=== PATIENT | male | born 1935 | race Caucasian/White ===

== ENCOUNTER 2016-09-19 14:47 | Emergency (ER) | payer MEDICARE, BC ==
[2016-09-19] MEDS ORDERED: Sodium Chloride 0.9% 1,000 ML IV ONE (15:32)
[2016-09-19] MEDS ORDERED: Metoprolol Tartrate 5 MG in Sodium Chloride 0.9% 50 ML IV ONE (15:33)
[2016-09-19] MEDS ORDERED: Metoprolol Tartrate 5 MG/5 ML SDV ONE (15:36)
[2016-09-19] MEDS ORDERED: Metoprolol Tartrate 5 MG/5 ML SDV IVPUSH ONE ×2 (15:39→16:15)
[2016-09-19] MEDS ORDERED: Diltiazem 25 MG/5 ML SDV IVPUSH ONE (16:15)
[2016-09-19] MEDS ORDERED: Diltiazem 50 MG/10 ML SDV IVPUSH ONE (16:30)
[2016-09-19] MEDS ORDERED: Diltiazem 25 MG/5 ML SDV ONE (16:34)
[2016-09-19 16:38] VITALS: BP 124/81
--- NOTE | 2016-09-20 11:41 | CR ---
INDICATION: Elevated heart rate. CHEST: AP portable upright view of the chest 09/19/2016 was compared with 11/16 and 07/31/2015, revealing elevated left hemidiaphragm, which may be at least partly anatomic. Splenic flexure is noted in that area, as well as the stomach. Overlying EKG leads are noted. Heart size appears to be near the upper limits of normal in size or perhaps slightly enlarged. This should be correlated clinically with PA view obtained for further evaluation as clinically possible. The aorta is slightly tortuous with calcification in the arch. A definite active infiltrate or effusion was not identified. IMPRESSION: No definite acute process. MTDD
--- NOTE | 2016-09-22 13:22 | ER ---
DATE SEEN: 09/19/2016 TIME SEEN: The patient was seen at 1930 hours. HISTORY OF PRESENT ILLNESS: This 81-year-old, who was previously cardioverted by myself in July of last year for PSVT, comes in with history of fast heart rate. He normally takes one metoprolol 50 mg succinate daily, but todya, with his fast heart rate today, he took an extra tablet this evening. He feels slightly lightheaded, but no chest pain, shortness of breath, or cough, fever, chills, or history of hypo or hyperthyroidism. No back pain, arm pain, jaw pain, neck pain. No abdominal pain. No nausea. No vomiting. He has mild shortness of breath. CURRENT MEDICATIONS: His current medications state he is on magnesium; however, the list of medications on the chart only says metoprolol succinate. ALLERGIES: None. REVIEW OF SYSTEMS: HEENT: Negative. CARDIORESPIRATORY: As noted above. Denies syncope, near syncope, shortness of breath. No cough. Denies fever or chills. GI: Denies GERD, constipation, blood in the stool, black tarry stool, diarrhea, hematochezia. He denies difficulty passing urine, frequency, urgency, or dysuria. Prostatism. Denies kidney stones. Denies stroke, CVA, seizures, paresis, weakness or numbness. MUSCULOSKELETAL: Negative, except for mild arthritis. SOCIAL HISTORY: He is a retired [employer] employee, worked 38 years at [employer]. He is not a smoker. PHYSICAL EXAMINATION: VITAL SIGNS: Heart rate 154, sinus tachycardia, he has T - waves in front of the QRS complex. Temperature 37.1 degrees centigrade, blood pressure 154/111, respiratory rate 18, oxygen saturation 92%. GENERAL: The patient is slightly pale in appearance. No diaphoresis. PERRLA intact. Pharynx without abnormality. NECK: No thyromegaly or masses in the neck. No bruits in neck. LUNGS: Clear to auscultation without rales, rhonchi, or wheezes. HEART: S1, S2. There is sinus tachycardia. No murmur noted. No chest wall discomfort. ABDOMEN: No hepatosplenomegaly. No abdominal discomfort. Abdomen is soft. EXTREMITIES: Lower extremities without edema. Deep tendon reflexes normoactive in the upper and lower extremities. Cranial nerves 2 through 12 intact. Oriented x3. Strength intact in the upper and lower extremities. DIAGNOSTIC DATA: EKG demonstrates sinus tachycardia at 154. T-waves noted in front of the QRS complexes, and complexes are slightly wide. The patient had received an extra metoprolol 50 mg before coming here, (metoprolol succinate). He was given two doses of Lopressor 5 mg IV, each 10 to 15 minutes apart, and still did not slow his rate. Consequently, 10 mg of Cardizem was utilized, slow push, and he had a prompt return of his heart rate to sinus rhythm in the 80s, blood pressure 135/70, heart rate at 80. The patient is pleased, his face is now more flushed, and the patient's status was followed, he did not have any further arrhythmias or bradycardia. His pressure were same. The patient dismissed to follow up with doctor in a week. He is to add to his medication routine diltiazem 60 mg daily. It is counterintuitive to use a calcium channel beckie with a beta-beckie, but this has worked quite well for him and perhaps his AV conduction system is slightly compromised, and this will slow the AV conduction. Follow up with Dr. Willingham within the next 4 to 5 days and he has also been advised that maybe he does not need this diltiazem and leave that to the discretion of Dr. Willingham. DIAGNOSES: Sinus tachycardia, etiology indeterminate, no evidence for hypothyroidism. No evidence for coronary artery disease or coronary artery ischemia. LABORATORY FINDINGS: White count is 9,700 normal, PMNs 61, lymphocytes 26, monos 7, hemoglobin 15.6 (elevated) and platelets 272,000. Coagulation D-dimer is less than 100 and automated chemistry is good with sodium 142, potassium 4.3, chloride 107, CO2 27, BUN 22, creatinine 1.6. GFR 53, slightly low, but not very low for his age, it is quite good. Troponin less than 0.01 and BNP is 227. ASSESSMENT: 1. Sinus tachycardia, etiology indeterminate. 2. Rule out coronary artery disease. 3. No evidence for aneurysm. 4. No evidence for myocardial infarction, myocardial ischemia, or myocardial injury. No evidence for PE. D-dimer is not elevated. /[id number] JAVIER/COLLEEN MTDD
== END 2016-09-19 17:10 | disposition home or self-care (01) ==
LOC: FB.ED 14:47
DX: R00.0 Tachycardia, unspecified (principal); I47.1 Supraventricular tachycardia; Z96.652 Presence of left artificial knee joint; Z79.899 Other long term (current) drug therapy
CPT/HCPCS: 36415; 71010; 80053; 83605; 83880; 84484; 85025; 85379; 87040; 93005; 96361; 96374; 96375; 96376; 99285; J7040; 99284; A9270-GY; J0153; J3490; J7050

== ENCOUNTER 2016-09-19 23:51 | Emergency (ER) | payer MEDICARE, BC ==
[2016-09-20] MEDS ORDERED: Metoprolol Tartrate 50 MG Tab PO ONE (00:10)
--- NOTE | 2016-09-20 00:16 | EDM.PDOC ---
ED HPI GENERAL MEDICAL PROBLEM - General Chief Complaint: Cardiovascular Problem Stated Complaint: RACING HEART RATE Time Seen by Provider: 09/20/16 00:05 Source of Information: Reports: Patient, Old Records History Limitations: Reports: No Limitations - History of Present Illness INITIAL COMMENTS - FREE TEXT/NARRATIVE: 81 yo male was seen earlier today for tachycardia by Dr. Fisher. During that visit he was given IV Cardizem with either a slowing of or a conversion of the rapid rhythm. He was later sent home with an Rx for diltiazem, but was not given an oral dose in the ER. He went home about supper time. Mr. Cantrell is normally on metoprolol succinate 50 mg qd. He went to bed tonight about 10 pm and awoke about 30 minutes later with the tachycardia returned. He has no other sx's other than he is aware of his heart beating fast. A review of old records shows that he was seen here for a similar problem 08/13/16. Extensive blood work from earlier today was all normal. He reports that he had taken an extra 50 mg of metoprolol orally before coming into the ER the first time today without benefit. In the past when he's had this tachycardia taking the extra dose has resulted in a slowing of his rapid heart rate. 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 (see below) (no ) - Related Data Allergies Allergy/AdvReac Type Severity Reaction Status Date / Time No Known Allergies Allergy Verified 09/20/16 00:13 Home Meds: Home Meds Diltiazem HCl [Diltiazem ER] 90 mg PO BID #20 cap.er.12h 09/19/16 [Rx] Metoprolol Succinate 50 mg PO DAILY 09/19/16 [History] Past Medical History HEENT History: Reports: Impaired Vision Cardiovascular History: Reports: Other (See Below) Other Cardiovascular History: hx of ventricular tachycardia with previous use of adenosine, as well as electrical cardioversion - Past Surgical History Cardiovascular Surgical History: Reports: Cardiac Ablation Other Cardiovascular Surgeries/Procedures: for tachy-arrhythmia Musculoskeletal Surgical History: Reports: Knee Replacement Other Musculoskeletal Surgeries/Procedures:: left knee Social & Family History - Family History Family Medical History: Noncontributory - Tobacco Use Smoking Status *Q: Never Smoker Second Hand Smoke Exposure: No - Caffeine Use Caffeine Use: Reports: Tea - Recreational Drug Use Recreational Drug Use: No ED ROS GENERAL - Review of Systems Review Of Systems: See Below Constitutional: Reports: No Symptoms HEENT: Reports: No Symptoms Respiratory: Reports: No Symptoms Cardiovascular: Reports: Palpitations (tachycardia) GI/Abdominal: Reports: No Symptoms : Reports: No Symptoms Musculoskeletal: Reports: No Symptoms Skin: Reports: No Symptoms Neurological: Reports: No Symptoms ED EXAM, GENERAL - Physical Exam Exam: See Below Exam Limited By: No Limitations General Appearance: Alert, WD/WN, No Apparent Distress Eye Exam: Bilateral Eye: Normal Inspection Nose: Normal Inspection, Normal Mucosa Throat/Mouth: Normal Inspection, Normal Lips, Normal Oropharynx, Normal Voice, No Airway Compromise Head: Atraumatic, Normocephalic Neck: Normal Inspection Respiratory/Chest: No Respiratory Distress, Lungs Clear, Normal Breath Sounds Cardiovascular: Regular Rate, Rhythm, No Edema GI/Abdominal: Normal Bowel Sounds, Soft, Non-Tender, No Distention Back Exam: Normal Inspection Extremities: Normal Inspection, Normal Range of Motion, Non-Tender, No Pedal Edema Neurological: Alert, Oriented, CN II-XII Intact, Normal Cognition, No Motor/ Sensory Deficits Psychiatric: Normal Affect, Normal Mood Skin Exam: Warm, Dry, Intact, Normal Color, No Rash Lymphatic: No Adenopathy EKG INTERPRETATION EKG Date: 09/20/16 Time: 00:05 Rhythm: NSR Rate (Beats/Min): 148 [place]: Normal P-Wave: Present QRS: Normal ST-T: Normal QT: Normal Comparison: No Change Course - Vital Signs Text/Narrative:: metoprolol tartrate 50 mg po-no change in rate Saline lock, Adenosine 6 mg IV-converted for about 15 seconds, then went right back into the tachycardia Cardizem 25 mg IV-converted to NSR @ 75/min. Diltiazem 120 mg po given Last Recorded V/S: Last Vital Signs Temp 37.0 C 09/20/16 00:20 Pulse 150 H 09/20/16 00:20 Resp 18 09/20/16 00:20 BP 115/98 H 09/20/16 00:20 Pulse Ox 93 L 09/20/16 00:20 - Orders/Labs/Meds Orders: Active Orders 24 hr Category Date Time Status Cardiac Monitoring [RC] .As Directed Care 09/20/16 00:05 Active EKG Documentation Completion [RC] ASDIRECTED Care 09/20/16 00:05 Active Diltiazem Med 09/20/16 00:49 Once 25 mg IVPUSH ONETIME ONE Sodium Chloride 0.9% [Saline Flush] Med 09/20/16 00:31 Active 10 ml FLUSH ASDIRECTED PRN Saline Lock Insert [OM.PC] Routine Oth 09/20/16 00:31 Ordered EKG 12 Lead [EK] Routine Ther 09/20/16 00:04 Ordered Medication Orders Sodium Chloride (Saline Flush) 10 ml FLUSH ASDIRECTED PRN PRN Reason: Keep Vein Open Last Admin: 09/20/16 00:49 Dose: 10 ml Meds: Medications Generic Name Dose Route Start Last Admin Trade Name Freq PRN Reason Stop Dose Admin Sodium Chloride 10 ml 09/20/16 00:31 09/20/16 00:49 Saline Flush FLUSH 10 ml ASDIRECTED PRN Administration Keep Vein Open Discontinued Medications Generic Name Dose Route Start Last Admin Trade Name Freq PRN Reason Stop Dose Admin Adenosine 6 mg 09/20/16 00:32 09/20/16 00:46 Adenocard IVPUSH 09/20/16 00:33 6 mg NOW ONE Administration Metoprolol Tartrate 50 mg 09/20/16 00:10 09/20/16 00:17 Lopressor PO 09/20/16 00:11 50 mg ONETIME ONE Administration Departure - Departure Time of Disposition: 01:15 Disposition: Home, Self-Care 01 Condition: Good Clinical Impression: Paroxysmal supraventricular tachycardia - My Orders Last 24 Hours: My Active Orders 09/20/16 00:04 EKG 12 Lead [EK] Routine 09/20/16 00:05 Cardiac Monitoring [RC] .As Directed EKG Documentation Completion [RC] ASDIRECTED 09/20/16 00:31 Sodium Chloride 0.9% [Saline Flush] 10 ml FLUSH ASDIRECTED PRN Saline Lock Insert [OM.PC] Routine 09/20/16 00:49 Diltiazem 25 mg IVPUSH ONETIME ONE - Assessment/Plan Last 24 Hours: My Active Orders 09/20/16 00:04 EKG 12 Lead [EK] Routine 09/20/16 00:05 Cardiac Monitoring [RC] .As Directed EKG Documentation Completion [RC] ASDIRECTED 09/20/16 00:31 Sodium Chloride 0.9% [Saline Flush] 10 ml FLUSH ASDIRECTED PRN Saline Lock Insert [OM.PC] Routine 09/20/16 00:49 Diltiazem 25 mg IVPUSH ONETIME ONE
[2016-09-20] MEDS ORDERED: Adenosine 6 MG/2 ML SDV IVPUSH ONE (00:32)
[2016-09-20] MEDS ORDERED: Diltiazem 25 MG/5 ML SDV IVPUSH ONE (00:49)
[2016-09-20] MEDS: Sodium Chloride 0.9% 10 ML Syringe FLUSH PRN ×3 (00:49→00:59)
[2016-09-20] MEDS ORDERED: Diltiazem 120 MG Cap.CD PO ONE (01:00)
[2016-09-20] MEDS ORDERED: Sodium Chloride 0.9% 1,000 ML IV ONE (01:22)
[2016-09-20 02:53] VITALS: BP 128/78
== END 2016-09-20 02:53 | disposition home or self-care (01) ==
LOC: FB.ED 23:51
DX: I47.1 Supraventricular tachycardia (principal); Z96.652 Presence of left artificial knee joint; Z79.899 Other long term (current) drug therapy
CPT/HCPCS: 93005; 96361; 96374; 96375; 99285; A9270; J0153; J7040; J7050; J3490

== ENCOUNTER 2016-11-07 01:28 | Emergency (ER) | payer MEDICARE, BC ==
[2016-11-07] MEDS ORDERED: Diltiazem 25 MG/5 ML SDV IVPUSH ONE (01:40)
[2016-11-07] MEDS ORDERED: Diltiazem 25 MG/5 ML SDV ONE (01:40)
[2016-11-07] MEDS ORDERED: Diltiazem 120 MG Cap.CD PO ONE (01:55)
[2016-11-07] MEDS ORDERED: Diltiazem 120 MG Cap.CD ONE (01:59)
[2016-11-07 03:40] VITALS: BP 116/77
--- NOTE | 2016-11-07 08:32 | ER ---
DATE SEEN: 11/07/2016 TIME SEEN: 0230 hours. CHIEF COMPLAINT: Palpitations. HISTORY OF PRESENT ILLNESS: An 81-year-old male complaining of palpitations at about 2300 hours. He took metoprolol that he has taken before, but his symptoms did not improve. He complains of no chest pain or shortness of breath. This is 3rd episode in 3 months where he is coming with the same symptoms. He currently takes Cardizem along with metoprolol. He has a cardiology appointment next week. REVIEW OF SYSTEMS: He has no other symptoms. All 12 points were negative. ALLERGIES: Penicillin. SOCIAL HISTORY: Does not smoke or drink alcohol in excess. PHYSICAL EXAMINATION: VITAL SIGNS: On examination, his blood pressure was initially in the 150s systolic, heart rate was 150s. He has normal saturations, and he is afebrile. ENT: Negative. CARDIOVASCULAR: Regular rate but very fast, tachycardic. EXTREMITIES: No edema. ABDOMEN: Soft. LUNGS: Clear. MENTAL STATUS: Alert. SKIN: No pallor or jaundice. EKG: Revealed a wide-complex tachycardia with a heart rate of 166. LABORATORY DATA: I did labs that were negative. Please see the nurse's notes. IMPRESSION: Atrioventricular espinoza reentrant tachycardia. PLAN: I gave him Cardizem 20 mg which returned him to normal sinus rhythm. He has remained asymptomatic. I suspect this is paroxysmal SVT, and I discharged him home to continue his current medications after one oral dose of Cardizem. I recommended follow up with a classification control clerk this week. Return to the ED or come back with any worsening symptoms or any new symptoms. /[id number] MAHAMED/COLLEEN
== END 2016-11-07 03:00 | disposition home or self-care (01) ==
LOC: FB.ED 01:28
DX: I47.1 Supraventricular tachycardia (principal); Z88.0 Allergy status to penicillin
CPT/HCPCS: 36415; 80048; 83880; 84443; 84484; 85025; 93005; 96374; 99285; A9270; J3490; 99284

== ENCOUNTER 2019-09-30 09:48 | Observation (INO) | payer MEDICARE, BC ==
--- NOTE | 2019-09-30 10:01 | EDM.PDOC ---
ED HPI GENERAL MEDICAL PROBLEM - General Stated Complaint: FAST HEART RATE Time Seen by Provider: 09/30/19 09:59 Source of Information: Reports: Patient History Limitations: Reports: No Limitations - History of Present Illness INITIAL COMMENTS - FREE TEXT/NARRATIVE: 84-year-old male who reports that he has had intermittent problems with fast heart rate and he was seen by Dr. Singleton approximately 2 weeks ago and was placed on a medication (flecainide) for fast heart rate. He states that he felt that he had been doing well since then until he ran out of the medications about 2-3 days ago and it as intermittent episodes of fast heart rate with an episode yesterday morning that was associated with chest pain and shortness of breath and feelings of weakness lasted for about 2 hours. It seemed to resolve and he felt better through the day and the evening and reports that he slept well last night and then this morning while he was eating breakfast at 8 AM with his he felt that feeling of fast heart rate again and also a feeling of shortness of breath and weakness and malaise. He reports he had chest pain at the time and that pain in his chest was rated by him as an 8/10. It felt like a squeezing and heaviness type pain. It did not radiate. He was brought here to the emergency department via private vehicle by his and reports upon arrival here that he feels much improved. When placed on the monitor, however, his heart rate was in the 160s and his blood pressure was in the 100 systolic range. He specifically denied any chest pain or shortness of breath. He is currently rating his pain as a 0/10. He had no neck, jaw or arm pain. He has had no nausea or vomiting associated with this. No diaphoresis with this. No syncope associated with this but he didn't fill somewhat weak when these "episodes" occurred. No cough. No nasal congestion. No sore throat. No fevers or chills. He knows of no inciting event. There are no exacerbating or alleviating factors. There are no other associated signs or symptoms. There are no other modifying factors. Onset: Other (Intermittently for the past 2 days. Worse this morning.) Duration: Getting Worse Location: Reports: Chest Quality: Reports: Ache, Dull, Pressure Severity: Moderate (to severe earlier. 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 Recently was placed on flecainide.) - Past Surgical History HEENT Surgical History: Reports: Tonsillectomy Cardiovascular Surgical History: Reports: Cardiac Ablation Other Cardiovascular Surgeries/Procedures: for tachy-arrhythmia GI Surgical History: Reports: Appendectomy Musculoskeletal Surgical History: Reports: Knee Replacement Other Musculoskeletal Surgeries/Procedures:: left knee Social & Family History - Tobacco Use Smoking Status *Q: Unknown Ever Smoked (Nonsmoker) - Caffeine Use Caffeine Use: Reports: Tea - Alcohol Use Alcohol Use History: No - Living Situation & Occupation Living situation: Reports: Occupation: Retired ED ROS GENERAL - Review of Systems Review Of Systems: See Below Constitutional: Reports: Malaise, Weakness HEENT: Reports: No Symptoms Respiratory: Reports: Shortness of Breath Cardiovascular: Reports: Chest Pain, Lightheadedness, Palpitations (Fast heart rate) GI/Abdominal: Reports: No Symptoms : Reports: No Symptoms Musculoskeletal: Reports: No Symptoms Skin: Reports: No Symptoms Neurological: Reports: No Symptoms Hematologic/Lymphatic: Reports: No Symptoms Immunologic: Reports: No Symptoms ED EXAM, GENERAL - Physical Exam Exam: See Below Exam Limited By: No Limitations General Appearance: Alert, WD/WN, No Apparent Distress, Other (Nontoxic appearing despite having a heart rate in the 160s. He is awake, alert and appropriately responsive and interactive.) Eye Exam: Bilateral Eye: EOMI, Normal Inspection, Other (Sclera are anicteric) Ears: Normal External Exam, Hearing Grossly Normal Ear Exam: Bilateral Ear: Auricle Normal Nose: Normal Inspection, Normal Mucosa, No Blood Throat/Mouth: Normal Inspection, Normal Oropharynx, Normal Voice, No Airway Compromise Head: Atraumatic, Normocephalic Neck: Normal Inspection, Supple, Non-Tender, Full Range of Motion Respiratory/Chest: No Respiratory Distress, Lungs Clear, Normal Breath Sounds, No Accessory Muscle Use, Chest Non-Tender Cardiovascular: Normal Peripheral Pulses, No Edema, No Murmur, Tachycardia Peripheral Pulses: 2+: Radial (L), Radial (R), Dorsalis Pedis (L), Dorsalis Pedis (R) GI/Abdominal: Normal Bowel Sounds, Soft, Non-Tender, No Mass Back Exam: Normal Inspection, Full Range of Motion Extremities: Normal Inspection, Normal Range of Motion, Non-Tender, No Pedal Edema, Normal Capillary Refill Neurological: Alert, Oriented, CN II-XII Intact, Normal Cognition, No Motor/Sensory Deficits Psychiatric: Normal Affect Skin Exam: Warm, Dry, Intact, Normal Color, No Rash EKG INTERPRETATION EKG Date: 09/30/19 Time: 09:52 Rhythm: Other (Wide-complex tachycardia) Rate (Beats/Min): 164 P-Wave: Absent (Either absent or hidden secondary to fast heart rate) QRS: Wide ST-T: Other (Nonspecific) QT: Prolonged Comparison: Change From Previous EKG (Compared to EKG performed on 11/07/2016, this is exactly the same as he presented at that time.) EKG Interpretation Comments: EKG #2 (10:48 AM): This was performed after the patient had received diltiazem 15 mg IV slow push. It now shows appears to be to be a flutter with a 4-1 block. There is also deeply inverted T waves in V3, V4 and V5 which were not present on the EKG after chemical conversion on 11/07/2016. Course - Vital Signs Last Recorded V/S: Last Vital Signs Temp 36.7 C 09/30/19 12:30 Pulse 91 09/30/19 12:30 Resp 18 09/30/19 12:30 BP 115/56 L 09/30/19 12:30 Pulse Ox 95 09/30/19 12:30 - Orders/Labs/Meds Orders: Active Orders 24 hr Category Date Time Status EKG Documentation Completion [RC] ASDIRECTED Care 09/30/19 10:26 Active Chest 1V Frontal [CR] Stat Exams 09/30/19 11:04 Taken Sodium Chloride 0.9% [Normal Saline] 1,000 ml Med 09/30/19 10:30 Active IV ASDIRECTED Sodium Chloride 0.9% [Saline Flush] Med 09/30/19 10:25 Active 10 ml FLUSH ASDIRECTED PRN Peripheral IV Insertion Adult [OM.PC] Routine Oth 09/30/19 10:25 Ordered EKG 12 Lead [EK] Routine Ther 09/30/19 10:25 Ordered Medication Orders Acetaminophen (Tylenol Extra Strength) 1,000 mg PO Q6H PRN PRN Reason: Pain Sodium Chloride (Normal Saline) 1,000 mls @ 100 mls/hr IV ASDIRECTED KATYA Last Admin: 09/30/19 11:03 Dose: 100 mls/hr Documented by: RONEL Sodium Chloride (Saline Flush) 10 ml FLUSH ASDIRECTED PRN PRN Reason: Keep Vein Open Last Admin: 09/30/19 11:00 Dose: 10 ml Documented by: RONEL Labs: Laboratory Tests 09/30/19 09/30/19 09/30/19 Range/Units 10:20 10:20 10:20 WBC 9.9 (4.5-12.0) X10-3/uL RBC 5.44 (4.30-5.75) x10(6)uL Hgb 15.4 (13.5-17.8) g/dL Hct 47.3 (30.0-51.3) % MCV 86.8 (80-96) fL MCH 28.2 (27.7-33.6) pg MCHC 32.5 (32.2-35.4) g/dL RDW 14.3 (11.5-15.5) % Plt Count 277 (125-369) X10(3)uL MPV 8.4 (7.4-10.4) fL Neut % (Auto) 57.2 (46-82) % Lymph % (Auto) 30.3 (13-37) % [place] % (Auto) 7.2 (4-12) % Eos % (Auto) 2 (1.0-5.0) % Baso % (Auto) 3 H (0-2) % Neut # (Auto) 5.7 (1.6-8.3) # Lymph # (Auto) 3.0 (0.6-5.0) # [place] # (Auto) 0.7 (0.0-1.3) # Eos # (Auto) 0.2 (0.0-0.8) # Baso # (Auto) 0.3 H (0.0-0.2) # D-Dimer, Quantitative 0.41 (0.0-0.59) mg/LFEU Sodium 139 (135-145) mmol/L Potassium 4.3 (3.5-5.3) mmol/L Chloride 106 (100-110) mmol/L Carbon Dioxide 22 (21-32) mmol/L BUN 21 H (7-18) mg/dL Creatinine 1.8 H (0.70-1.30) mg/dL Est Cr Clr Drug Dosing TNP Estimated GFR (MDRD) 36 L (>60) BUN/Creatinine Ratio 11.7 (9-20) Glucose 135 H (80-116) mg/dL Calcium 8.5 L (8.6-10.2) mg/dL Magnesium 2.0 (1.8-2.5) mg/dL Total Bilirubin 0.7 (0.1-1.3) mg/dL AST 16 (5-25) IU/L ALT 13 (12-36) U/L Alkaline Phosphatase 69 (56-112) IU/L Troponin I (4.0-60.3) pg/mL Total Protein 6.7 (6.0-8.0) g/dL Albumin 3.3 (3.2-4.6) g/dL Globulin 3.4 g/dL Albumin/Globulin Ratio 1.0 TSH, Ultra Sensitive (0.36-3.74) IU/mL 09/30/19 09/30/19 Range/Units 10:20 10:20 WBC (4.5-12.0) X10-3/uL RBC (4.30-5.75) x10(6)uL Hgb (13.5-17.8) g/dL Hct (30.0-51.3) % MCV (80-96) fL MCH (27.7-33.6) pg MCHC (32.2-35.4) g/dL RDW (11.5-15.5) % Plt Count (125-369) X10(3)uL MPV (7.4-10.4) fL Neut % (Auto) (46-82) % Lymph % (Auto) (13-37) % [place] % (Auto) (4-12) % Eos % (Auto) (1.0-5.0) % Baso % (Auto) (0-2) % Neut # (Auto) (1.6-8.3) # Lymph # (Auto) (0.6-5.0) # [place] # (Auto) (0.0-1.3) # Eos # (Auto) (0.0-0.8) # Baso # (Auto) (0.0-0.2) # D-Dimer, Quantitative (0.0-0.59) mg/LFEU Sodium (135-145) mmol/L Potassium (3.5-5.3) mmol/L Chloride (100-110) mmol/L Carbon Dioxide (21-32) mmol/L BUN (7-18) mg/dL Creatinine (0.70-1.30) mg/dL Est Cr Clr Drug Dosing Estimated GFR (MDRD) (>60) BUN/Creatinine Ratio (9-20) Glucose (80-116) mg/dL Calcium (8.6-10.2) mg/dL Magnesium (1.8-2.5) mg/dL Total Bilirubin (0.1-1.3) mg/dL AST (5-25) IU/L ALT (12-36) U/L Alkaline Phosphatase (56-112) IU/L Troponin I 18.4 (4.0-60.3) pg/mL Total Protein (6.0-8.0) g/dL Albumin (3.2-4.6) g/dL Globulin g/dL Albumin/Globulin Ratio TSH, Ultra Sensitive 1.61 (0.36-3.74) IU/mL Meds: Medications Generic Name Dose Route Start Last Admin Trade Name Freq PRN Reason Stop Dose Admin Acetaminophen 1,000 mg 09/30/19 13:04 Tylenol Extra Strength PO Q6H PRN Pain Sodium Chloride 1,000 mls @ 100 mls/hr 09/30/19 10:30 09/30/19 11:03 Normal Saline IV 100 mls/hr ASDIRECTED KATYA Administration Sodium Chloride 10 ml 09/30/19 10:25 09/30/19 11:00 Saline Flush FLUSH 10 ml ASDIRECTED PRN Administration Keep Vein Open Discontinued Medications Generic Name Dose Route Start Last Admin Trade Name Freq PRN Reason Stop Dose Admin Adenosine Confirm 09/30/19 10:04 09/30/19 11:00 Adenocard Administered 09/30/19 10:05 Not Given Dose 12 mg .ROUTE .STK-MED ONE Adenosine 6 mg 09/30/19 10:03 09/30/19 10:15 Adenocard IVPUSH 09/30/19 10:04 6 mg NOW ONE Administration Adenosine 12 mg 09/30/19 10:55 09/30/19 10:17 Adenocard IVPUSH 09/30/19 10:56 12 mg NOW ONE Administration Aspirin 324 mg 09/30/19 10:23 09/30/19 10:30 Aspirin PO 09/30/19 10:24 324 mg ONETIME ONE Administration Diltiazem HCl 20 mg 09/30/19 10:23 09/30/19 10:33 Diltiazem IVPUSH 09/30/19 10:24 15 mg ONETIME ONE Administration Sodium Chloride 500 mls @ 999 mls/hr 09/30/19 10:23 09/30/19 10:34 Normal Saline IV 09/30/19 10:53 999 mls/hr .BOLUS ONE Administration - Radiology Interpretation Free Text/Narrative:: Portable chest x-ray shows elevated left hemidiaphragm that was present in 2017. No other acute abnormality. - Re-Assessments/Exams Free Text/Narrative Re-Assessment/Exam: 09/30/19 10:45: Patient had been attended immediately after arrival by myself. He was awake and alert and neurologically stable with somewhat borderline blood pressure with the systolic blood pressure 100. He was given adenosine 6 mg ini tially with no effect and then 12 mg with slowing of his heart rate transiently and this appeared to show atrial flutter and then the rate sped back up to the previous level of 160. Following this, he was given diltiazem IV slowly and received 15 mg total IV with reduction in his heart rate to the 60s and it seemed to be regular at this point. All through this, he remained awake, alert and appropriate. He was chest pain-free throughout this and "felt well". He did not really notice any difference between his heart rate of 166 and after it was converted down to a rate in the 60s. He had no lightheadedness or dizziness. Repeat EKG is pending. 09/30/19 10:50: Patient's blood tests are all reassuringly normal including a negative troponin. EKG shows a regular rhythm with a rate in the 60s and it does appear to have ear P waves with a block or flutter waves still. In addition his lateral T waves are deeply inverted which is different from an EKG that was performed on 11/07/2016 after chemical conversion of his tachycardia. He continues to deny any chest pain or shortness of breath. He reports that he feels completely well now. I feel the patient will need admission with close cardiac monitoring and serial troponins. I will discuss the patient's case with Dr. Willingham, the patient's primary physician and the hospitalist today, in regard to admission. 09/30/19 11:15: I discussed the patient's case with Dr. Willingham and he is agreeable to admitting the patient here. I also called and discussed patient is case with his at the patient's request and the patient's is in agreement with the patient being admitted here as well. I discussed this with the patient and he is in agreement with the plan for admission as well. I will place interim admission orders and Dr. Willingham is coming in to see the patient. The patient will be placed on observation status for now. Departure - Departure Time of Disposition: 11:30 Disposition: Refer to Observation Condition: Fair (Stable/improved) Clinical Impression: Wide-complex tachycardia, Acute electrocardiogram changes Chest pain Qualifiers: Chest pain type: unspecified Qualified Code(s): R07.9 - Chest pain, unspecified Critical Care Note - Critical Care Note Total Time (mins): 45 (Patient was attended immediately upon arrival to the emergency department by myself and was monitored continuously for the first 45 minutes of his emergency department stay secondary to his Plex tachycardia and borderline hypotension. Therefore critical care time was 45 minutes.) Sepsis Event Note (ED) - Focused Exam Vital Signs: Vital Signs Temp Pulse Resp BP Pulse Ox 09/30/19 11:00 62 100/52 L 09/30/19 10:45 63 91/55 L 09/30/19 10:40 67 95/52 L 09/30/19 10:35 58 L 100/56 L 09/30/19 09:48 36.8 C 165 H 21 H 104/88 95 - My Orders Last 24 Hours: My Active Orders 09/30/19 10:25 Sodium Chloride 0.9% [Saline Flush] 10 ml FLUSH ASDIRECTED PRN Peripheral IV Insertion Adult [OM.PC] Routine EKG 12 Lead [EK] Routine 09/30/19 10:26 EKG Documentation Completion [RC] ASDIRECTED 09/30/19 10:30 Sodium Chloride 0.9% [Normal Saline] 1,000 ml IV ASDIRECTED 09/30/19 11:04 Chest 1V Frontal [CR] Stat - Assessment/Plan Last 24 Hours: My Active Orders 09/30/19 10:25 Sodium Chloride 0.9% [Saline Flush] 10 ml FLUSH ASDIRECTED PRN Peripheral IV Insertion Adult [OM.PC] Routine EKG 12 Lead [EK] Routine 09/30/19 10:26 EKG Documentation Completion [RC] ASDIRECTED 09/30/19 10:30 Sodium Chloride 0.9% [Normal Saline] 1,000 ml IV ASDIRECTED 09/30/19 11:04 Chest 1V Frontal [CR] Stat
[2019-09-30] MEDS ORDERED: Adenosine 6 MG/2 ML SDV IVPUSH ONE ×2 (10:03→10:55)
[2019-09-30] MEDS ORDERED: Adenosine 6 MG/2 ML SDV ONE (10:04)
[2019-09-30] MEDS ORDERED: Diltiazem 25 MG/5 ML SDV IVPUSH ONE (10:23)
[2019-09-30] MEDS ORDERED: Sodium Chloride 0.9% 500 ML IV ONE (10:23)
[2019-09-30] MEDS ORDERED: Aspirin 81 MG Tab.Chew PO ONE (10:23)
[2019-09-30] MEDS ORDERED: Sodium Chloride 0.9% 1,000 ML IV SCH (10:30)
[2019-09-30] MEDS: Sodium Chloride 0.9% 10 ML Syringe FLUSH PRN ×2 (11:00→13:56)
[2019-09-30] MEDS ORDERED: Acetaminophen 500 MG Tab PO PRN (13:04)
--- NOTE | 2019-09-30 13:52 | PCM.HP.2 ---
H&P History of Present Illness - General Date of Service: 09/30/19 Admit Problem/Dx: Admission Diagnosis/Problem Admission Diagnosis/Problem Chest pain Source of Information: Patient, EMS, Old Records History Limitations: Reports: No Limitations - History of Present Illness Initial Comments - Free Text/Narative: This is an 84-year-old male patient that is a history of SVT and atrial fibrillation beats. He was placed on flecainide 50 mg twice a day [address] Valerio [address] Valerio conferred with associate director. He ran out of his medicine a couple days ago and then started having problems with chest pain last night. Then it reoccurred this morning. He had some shortness of breath and some sweating. He came to the ER his heart rate was 160. He is given some adenosine and then IV diltiazem and his heart rate returned to normal levels. He's normally and Toprol XL 100 mg and course of flecainide 50 twice a day. He said ablations 2. As I speak to me feels really great. He denies chest pain, shortness breath, fevers, chills, arm pain. - Related Data Allergies/Adverse Reactions: Allergies Allergy/AdvReac Type Severity Reaction Status Date / Time Penicillins Allergy Swelling Verified 11/07/16 01:48 Home Medications: Home Meds Flecainide Acetate 50 mg PO BID 09/30/19 [History] Past Medical History HEENT History: Reports: Impaired Vision Cardiovascular History: Reports: Arrhythmia (Reported to be SVT in 2017 with conversion with Cardizem. Recently was placed on flecainide.) Other Cardiovascular History: hx of ventricular tachycardia with previous use of adenosine, as well as electrical cardioversion - Past Surgical History HEENT Surgical History: Reports: Tonsillectomy Cardiovascular Surgical History: Reports: Cardiac Ablation Other Cardiovascular Surgeries/Procedures: for tachy-arrhythmia GI Surgical History: Reports: Appendectomy Musculoskeletal Surgical History: Reports: Knee Replacement Other Musculoskeletal Surgeries/Procedures:: left knee Social & Family History - Family History Family Medical History: Noncontributory - Tobacco Use Smoking Status *Q: Unknown Ever Smoked (Nonsmoker) Second Hand Smoke Exposure: No - Caffeine Use Caffeine Use: Reports: Tea - Recreational Drug Use Recreational Drug Use: No - Living Situation & Occupation Living situation: Reports: Occupation: Retired H&P Review of Systems - Review of Systems: Review Of Systems: See Below General: Reports: No Symptoms HEENT: Reports: No Symptoms Pulmonary: Reports: Shortness of Breath Cardiovascular: Reports: Chest Pain Gastrointestinal: Reports: No Symptoms Genitourinary: Reports: No Symptoms Musculoskeletal: Reports: No Symptoms Skin: Reports: No Symptoms Psychiatric: Reports: No Symptoms Neurological: Reports: No Symptoms Hematologic/Lymphatic: Reports: No Symptoms Immunologic: Reports: No Symptoms Exam - Exam Exam: See Below - Vital Signs Vital Signs: Last Vital Signs Temp 98.0 F 09/30/19 12:30 Pulse 91 09/30/19 12:30 Resp 18 09/30/19 12:30 BP 115/56 L 09/30/19 12:30 Pulse Ox 95 09/30/19 12:30 Weight: 202 lb 11.2 oz - Exam General: Alert, Oriented, Cooperative HEENT: PERRLA, Hearing Intact, Posterior Pharynx Clear, Pupils Equal, TMs Clear Neck: Supple, Trachea Midline. No: Carotid Bruit Lungs: Clear to Auscultation, Normal Respiratory Effort. No: Crackles, Rales, Rhonchi Cardiovascular: Regular Rate, Regular Rhythm, Normal S1, Normal S2. No: Tachycardia, Systolic Murmur, Diastolic Murmur GI/Abdominal Exam: Normal Bowel Sounds, Soft, Non-Tender, No Distention Back Exam: Normal Inspection Extremities: Normal Inspection, Normal Range of Motion, Non-Tender, No Pedal Edema Skin: Warm, Dry, Intact Neurological: Cranial Nerves Intact, Reflexes Equal Bilateral, Normal Speech, Normal Tone Neuro Extensive - Mental Status: Alert, Oriented x3, Normal Mood/Affect, Normal Cognition, Memory Intact Neuro Extensive - Motor, Sensory, Reflexes: Normal Gait Psychiatric: Alert, Normal Affect, Normal Mood - Patient Data Lab Results Last 24 hrs: Laboratory Results - last 24 hr 09/30/19 09/30/19 09/30/19 Range/Units 10:20 10:20 10:20 WBC 9.9 (4.5-12.0) X10-3/uL RBC 5.44 (4.30-5.75) x10(6)uL Hgb 15.4 (13.5-17.8) g/dL Hct 47.3 (30.0-51.3) % MCV 86.8 (80-96) fL MCH 28.2 (27.7-33.6) pg MCHC 32.5 (32.2-35.4) g/dL RDW 14.3 (11.5-15.5) % Plt Count 277 (125-369) X10(3)uL MPV 8.4 (7.4-10.4) fL Neut % (Auto) 57.2 (46-82) % Lymph % (Auto) 30.3 (13-37) % [place] % (Auto) 7.2 (4-12) % Eos % (Auto) 2 (1.0-5.0) % Baso % (Auto) 3 H (0-2) % Neut # (Auto) 5.7 (1.6-8.3) # Lymph # (Auto) 3.0 (0.6-5.0) # [place] # (Auto) 0.7 (0.0-1.3) # Eos # (Auto) 0.2 (0.0-0.8) # Baso # (Auto) 0.3 H (0.0-0.2) # D-Dimer, Quantitative 0.41 (0.0-0.59) mg/LFEU Sodium 139 (135-145) mmol/L Potassium 4.3 (3.5-5.3) mmol/L Chloride 106 (100-110) mmol/L Carbon Dioxide 22 (21-32) mmol/L BUN 21 H (7-18) mg/dL Creatinine 1.8 H (0.70-1.30) mg/dL Est Cr Clr Drug Dosing TNP Estimated GFR (MDRD) 36 L (>60) BUN/Creatinine Ratio 11.7 (9-20) Glucose 135 H (80-116) mg/dL Calcium 8.5 L (8.6-10.2) mg/dL Magnesium 2.0 (1.8-2.5) mg/dL Total Bilirubin 0.7 (0.1-1.3) mg/dL AST 16 (5-25) IU/L ALT 13 (12-36) U/L Alkaline Phosphatase 69 (56-112) IU/L Troponin I (4.0-60.3) pg/mL Total Protein 6.7 (6.0-8.0) g/dL Albumin 3.3 (3.2-4.6) g/dL Globulin 3.4 g/dL Albumin/Globulin Ratio 1.0 TSH, Ultra Sensitive (0.36-3.74) IU/mL 09/30/19 09/30/19 Range/Units 10:20 10:20 WBC (4.5-12.0) X10-3/uL RBC (4.30-5.75) x10(6)uL Hgb (13.5-17.8) g/dL Hct (30.0-51.3) % MCV (80-96) fL MCH (27.7-33.6) pg MCHC (32.2-35.4) g/dL RDW (11.5-15.5) % Plt Count (125-369) X10(3)uL MPV (7.4-10.4) fL Neut % (Auto) (46-82) % Lymph % (Auto) (13-37) % [place] % (Auto) (4-12) % Eos % (Auto) (1.0-5.0) % Baso % (Auto) (0-2) % Neut # (Auto) (1.6-8.3) # Lymph # (Auto) (0.6-5.0) # [place] # (Auto) (0.0-1.3) # Eos # (Auto) (0.0-0.8) # Baso # (Auto) (0.0-0.2) # D-Dimer, Quantitative (0.0-0.59) mg/LFEU Sodium (135-145) mmol/L Potassium (3.5-5.3) mmol/L Chloride (100-110) mmol/L Carbon Dioxide (21-32) mmol/L BUN (7-18) mg/dL Creatinine (0.70-1.30) mg/dL Est Cr Clr Drug Dosing Estimated GFR (MDRD) (>60) BUN/Creatinine Ratio (9-20) Glucose (80-116) mg/dL Calcium (8.6-10.2) mg/dL Magnesium (1.8-2.5) mg/dL Total Bilirubin (0.1-1.3) mg/dL AST (5-25) IU/L ALT (12-36) U/L Alkaline Phosphatase (56-112) IU/L Troponin I 18.4 (4.0-60.3) pg/mL Total Protein (6.0-8.0) g/dL Albumin (3.2-4.6) g/dL Globulin g/dL Albumin/Globulin Ratio TSH, Ultra Sensitive 1.61 (0.36-3.74) IU/mL Result Diagrams: 09/30/19 10:20 09/30/19 10:20 EKG INTERPRETATION EKG Date: 09/30/19 EKG Interpretation Comments: Sinus tachycardia on his tachycardia on the first EKG. Second EKG shows some ST depression on the anterolateral leads. Sinus rhythm versus atrial flutter. Sepsis Event Note - Evaluation Sepsis Screening Result: No Definite Risk - Focused Exam Vital Signs: Vital Signs Temp Pulse Resp BP Pulse Ox 09/30/19 12:30 98.0 F 91 18 115/56 L 95 09/30/19 12:00 78 142/80 H 09/30/19 11:30 80 112/65 09/30/19 11:00 62 100/52 L 09/30/19 10:45 63 91/55 L 09/30/19 10:40 67 95/52 L 09/30/19 10:35 58 L 100/56 L 09/30/19 09:48 98.3 F 165 H 21 H 104/88 95 - Problem List (1) Palliative care status SNOMED Code(s): 220424494 ICD Code: Z51.5 - ENCOUNTER FOR PALLIATIVE CARE Status: Acute Current Visit: Yes (2) Acute electrocardiogram changes SNOMED Code(s): 582488012 ICD Code: R94.31 - ABNORMAL ELECTROCARDIOGRAM [ECG] [EKG] Status: Acute Current Visit: Yes (3) Chest pain SNOMED Code(s): 38139581 ICD Code: R07.9 - CHEST PAIN, UNSPECIFIED Status: Acute Current Visit: Yes Qualifiers: Chest pain type: unspecified Qualified Code(s): R07.9 - Chest pain, unspecified (4) Wide-complex tachycardia SNOMED Code(s): 232869968 ICD Code: I47.2 - VENTRICULAR TACHYCARDIA Status: Acute Current Visit: Yes (5) Chronic renal insufficiency, stage III (moderate) SNOMED Code(s): 575133019 ICD Code: N18.3 - CHRONIC KIDNEY DISEASE, STAGE 3 (MODERATE) Status: Acute Current Visit: Yes Problem List Initiated/Reviewed/Updated: Yes Orders Last 24hrs: Active Orders 24 hr Category Date Time Status Admission Status [Patient Status] [ADT] Routine ADT 09/30/19 11:23 Active Cardiac Monitoring [RC] .As Directed Care 09/30/19 11:23 Active EKG Documentation Completion [RC] ASDIRECTED Care 09/30/19 10:26 Active EKG Documentation Completion [RC] ASDIRECTED Care 09/30/19 11:40 Active EKG Documentation Completion [RC] ASDIRECTED Care 09/30/19 13:44 Ordered Up ad Cheryl [RC] ASDIRECTED Care 09/30/19 13:45 Ordered Vital Signs [RC] Q4H Care 09/30/19 13:04 Active Heart Healthy Diet [DIET] Diet 09/30/19 Lunch Active Chest 1V Frontal [CR] Stat Exams 09/30/19 11:04 Taken TROPONIN I [CHEM] Routine Lab 09/30/19 16:15 Ordered Acetaminophen [Tylenol Extra Strength] Med 09/30/19 13:04 Active 1,000 mg PO Q6H PRN Flecainide Acetate [Flecainide Acetate] Med 09/30/19 21:00 Ordered 50 mg PO BID Metoprolol Succinate [Toprol XL] Med 09/30/19 13:45 Ordered 100 mg PO DAILY Sodium Chloride 0.9% [Normal Saline] 1,000 ml Med 09/30/19 10:30 Active IV ASDIRECTED Sodium Chloride 0.9% [Saline Flush] Med 09/30/19 10:25 Active 10 ml FLUSH ASDIRECTED PRN Peripheral IV Insertion Adult [OM.PC] Routine Oth 09/30/19 10:25 Ordered Code Status [Resuscitation Status] Routine Resus Stat 09/30/19 12:18 Ordered EKG 12 Lead [EK] Routine Ther 09/30/19 10:25 Ordered EKG 12 Lead [EK] Routine Ther 09/30/19 10:45 Ordered EKG 12 Lead [EK] Routine Ther 09/30/19 16:00 Ordered Medication Orders Acetaminophen (Tylenol Extra Strength) 1,000 mg PO Q6H PRN PRN Reason: Pain Sodium Chloride (Normal Saline) 1,000 mls @ 100 mls/hr IV ASDIRECTED KATYA Last Admin: 09/30/19 11:03 Dose: 100 mls/hr Documented by: RONEL Metoprolol Succinate (Toprol Xl) 100 mg PO DAILY [facility] Non-Formulary Medication (Flecainide Acetate [Flecainide Acetate]) 50 mg PO BID [facility] Sodium Chloride (Saline Flush) 10 ml FLUSH ASDIRECTED PRN PRN Reason: Keep Vein Open Last Admin: 09/30/19 11:00 Dose: 10 ml Documented by: RONEL Assessment/Plan Comment:: 1. Admit for observation on telemetry to rule out RI and observe rhythm. 2. Restart the flecainide 50 mrd twice a day with his Toprol 100 mg XL once a day 3. Cardiac diet 4. Up ad cheryl. 5. SCD/Lovenox for clot prophylaxis 6. Repeat troponins and EKGs a 6 hour 7. No labs of the troponin in a.m. - Mortality Measure Prognosis:: Good
[2019-09-30] MEDS: Metoprolol Succinate 100 MG Tab.ER PO SCH ×2 (13:57→14:06)
[2019-09-30] MEDS ORDERED: Enoxaparin 30 MG/0.3 ML Syringe SUBCUT SCH (14:00)
[2019-09-30] MEDS: Flecainide 100 MG Tab PO SCH ×2 (14:42→21:09)
[2019-10-01] MEDS: Metoprolol Succinate 100 MG Tab.ER PO SCH (08:05)
[2019-10-01] MEDS: Flecainide 100 MG Tab PO SCH (08:08)
[2019-10-01] MEDS ORDERED: Diltiazem 25 MG/5 ML SDV IVPUSH ONE (08:20)
[2019-10-01] MEDS ORDERED: Sodium Chloride 0.9% 1,000 ML IV SCH ×2 (08:30→09:15)
--- NOTE | 2019-10-01 09:12 | PCM.PN ---
- General Info Date of Service: 10/01/19 Admission Dx/Problem (Free Text): Patient without complaints. Through the night when he got up to the bathroom he has some tachycardia Y complex and then he will go back to bed and it would go away. This morning he got to the bathroom and he started having tachycardia but didn't go away. Patient states he has some palpitations but has no chest pain, fevers, chills, arm pain, jaw pain, nausea, diaphoresis or shortness of breath. - Patient Data Vitals - Most Recent: Last Vital Signs Temp 97.5 F 10/01/19 08:10 Pulse 92 10/01/19 08:42 Resp 16 10/01/19 08:42 BP 111/78 10/01/19 08:42 Pulse Ox 92 L 10/01/19 08:42 Weight - Most Recent: 202 lb 11.2 oz Lab Results Last 24 Hours: Laboratory Results - last 24 hr 09/30/19 09/30/19 09/30/19 Range/Units 10:20 10:20 10:20 WBC 9.9 (4.5-12.0) X10-3/uL RBC 5.44 (4.30-5.75) x10(6)uL Hgb 15.4 (13.5-17.8) g/dL Hct 47.3 (30.0-51.3) % MCV 86.8 (80-96) fL MCH 28.2 (27.7-33.6) pg MCHC 32.5 (32.2-35.4) g/dL RDW 14.3 (11.5-15.5) % Plt Count 277 (125-369) X10(3)uL MPV 8.4 (7.4-10.4) fL Neut % (Auto) 57.2 (46-82) % Lymph % (Auto) 30.3 (13-37) % [place] % (Auto) 7.2 (4-12) % Eos % (Auto) 2 (1.0-5.0) % Baso % (Auto) 3 H (0-2) % Neut # (Auto) 5.7 (1.6-8.3) # Lymph # (Auto) 3.0 (0.6-5.0) # [place] # (Auto) 0.7 (0.0-1.3) # Eos # (Auto) 0.2 (0.0-0.8) # Baso # (Auto) 0.3 H (0.0-0.2) # D-Dimer, Quantitative 0.41 (0.0-0.59) mg/LFEU Sodium 139 (135-145) mmol/L Potassium 4.3 (3.5-5.3) mmol/L Chloride 106 (100-110) mmol/L Carbon Dioxide 22 (21-32) mmol/L BUN 21 H (7-18) mg/dL Creatinine 1.8 H (0.70-1.30) mg/dL Est Cr Clr Drug Dosing TNP Estimated GFR (MDRD) 36 L (>60) BUN/Creatinine Ratio 11.7 (9-20) Glucose 135 H (80-116) mg/dL Calcium 8.5 L (8.6-10.2) mg/dL Magnesium 2.0 (1.8-2.5) mg/dL Total Bilirubin 0.7 (0.1-1.3) mg/dL AST 16 (5-25) IU/L ALT 13 (12-36) U/L Alkaline Phosphatase 69 (56-112) IU/L Troponin I (4.0-60.3) pg/mL Total Protein 6.7 (6.0-8.0) g/dL Albumin 3.3 (3.2-4.6) g/dL Globulin 3.4 g/dL Albumin/Globulin Ratio 1.0 TSH, Ultra Sensitive (0.36-3.74) IU/mL 09/30/19 09/30/19 09/30/19 Range/Units 10:20 10:20 16:18 WBC (4.5-12.0) X10-3/uL RBC (4.30-5.75) x10(6)uL Hgb (13.5-17.8) g/dL Hct (30.0-51.3) % MCV (80-96) fL MCH (27.7-33.6) pg MCHC (32.2-35.4) g/dL RDW (11.5-15.5) % Plt Count (125-369) X10(3)uL MPV (7.4-10.4) fL Neut % (Auto) (46-82) % Lymph % (Auto) (13-37) % [place] % (Auto) (4-12) % Eos % (Auto) (1.0-5.0) % Baso % (Auto) (0-2) % Neut # (Auto) (1.6-8.3) # Lymph # (Auto) (0.6-5.0) # [place] # (Auto) (0.0-1.3) # Eos # (Auto) (0.0-0.8) # Baso # (Auto) (0.0-0.2) # D-Dimer, Quantitative (0.0-0.59) mg/LFEU Sodium (135-145) mmol/L Potassium (3.5-5.3) mmol/L Chloride (100-110) mmol/L Carbon Dioxide (21-32) mmol/L BUN (7-18) mg/dL Creatinine (0.70-1.30) mg/dL Est Cr Clr Drug Dosing Estimated GFR (MDRD) (>60) BUN/Creatinine Ratio (9-20) Glucose (80-116) mg/dL Calcium (8.6-10.2) mg/dL Magnesium (1.8-2.5) mg/dL Total Bilirubin (0.1-1.3) mg/dL AST (5-25) IU/L ALT (12-36) U/L Alkaline Phosphatase (56-112) IU/L Troponin I 18.4 46.0 (4.0-60.3) pg/mL Total Protein (6.0-8.0) g/dL Albumin (3.2-4.6) g/dL Globulin g/dL Albumin/Globulin Ratio TSH, Ultra Sensitive 1.61 (0.36-3.74) IU/mL 10/01/19 Range/Units 06:25 WBC (4.5-12.0) X10-3/uL RBC (4.30-5.75) x10(6)uL Hgb (13.5-17.8) g/dL Hct (30.0-51.3) % MCV (80-96) fL MCH (27.7-33.6) pg MCHC (32.2-35.4) g/dL RDW (11.5-15.5) % Plt Count (125-369) X10(3)uL MPV (7.4-10.4) fL Neut % (Auto) (46-82) % Lymph % (Auto) (13-37) % [place] % (Auto) (4-12) % Eos % (Auto) (1.0-5.0) % Baso % (Auto) (0-2) % Neut # (Auto) (1.6-8.3) # Lymph # (Auto) (0.6-5.0) # [place] # (Auto) (0.0-1.3) # Eos # (Auto) (0.0-0.8) # Baso # (Auto) (0.0-0.2) # D-Dimer, Quantitative (0.0-0.59) mg/LFEU Sodium (135-145) mmol/L Potassium (3.5-5.3) mmol/L Chloride (100-110) mmol/L Carbon Dioxide (21-32) mmol/L BUN (7-18) mg/dL Creatinine (0.70-1.30) mg/dL Est Cr Clr Drug Dosing Estimated GFR (MDRD) (>60) BUN/Creatinine Ratio (9-20) Glucose (80-116) mg/dL Calcium (8.6-10.2) mg/dL Magnesium (1.8-2.5) mg/dL Total Bilirubin (0.1-1.3) mg/dL AST (5-25) IU/L ALT (12-36) U/L Alkaline Phosphatase (56-112) IU/L Troponin I 39.9 (4.0-60.3) pg/mL Total Protein (6.0-8.0) g/dL Albumin (3.2-4.6) g/dL Globulin g/dL Albumin/Globulin Ratio TSH, Ultra Sensitive (0.36-3.74) IU/mL Med Orders - Current: Current Medications Acetaminophen (Tylenol Extra Strength) 1,000 mg PO Q6H PRN PRN Reason: Pain Enoxaparin Sodium (Lovenox) 30 mg SUBCUT Q24H [facility] Last Admin: 09/30/19 14:42 Dose: 30 mg Documented by: Flecainide Acetate (Tambocor) 50 mg PO BID [facility] Last Admin: 10/01/19 08:08 Dose: 50 mg Documented by: Sodium Chloride (Normal Saline) 1,000 mls @ 500 mls/hr IV ASDIRECTED [facility] Last Admin: 10/01/19 08:30 Dose: 500 mls/hr Documented by: Metoprolol Succinate (Toprol Xl) 100 mg PO DAILY [facility] Last Admin: 10/01/19 08:05 Dose: 100 mg Documented by: Sodium Chloride (Saline Flush) 10 ml FLUSH ASDIRECTED PRN PRN Reason: Keep Vein Open Last Admin: 09/30/19 13:56 Dose: 10 ml Documented by: Discontinued Medications Adenosine (Adenocard) Confirm Administered Dose 12 mg .ROUTE .STK-MED ONE Stop: 09/30/19 10:05 Last Admin: 09/30/19 11:00 Dose: Not Given Documented by: Adenosine (Adenocard) 6 mg IVPUSH NOW ONE Stop: 09/30/19 10:04 Last Admin: 09/30/19 10:15 Dose: 6 mg Documented by: Adenosine (Adenocard) 12 mg IVPUSH NOW ONE Stop: 09/30/19 10:56 Last Admin: 09/30/19 10:17 Dose: 12 mg Documented by: Aspirin (Aspirin) 324 mg PO ONETIME ONE Stop: 09/30/19 10:24 Last Admin: 09/30/19 10:30 Dose: 324 mg Documented by: Diltiazem HCl (Diltiazem) 20 mg IVPUSH ONETIME ONE Stop: 09/30/19 10:24 Last Admin: 09/30/19 10:33 Dose: 15 mg Documented by: Diltiazem HCl (Diltiazem) 5 mg IVPUSH ONETIME ONE Stop: 10/01/19 08:21 Last Admin: 10/01/19 08:23 Dose: 5 mg Documented by: Sodium Chloride (Normal Saline) 500 mls @ 999 mls/hr IV .BOLUS ONE Stop: 09/30/19 10:53 Last Admin: 09/30/19 10:34 Dose: 999 mls/hr Documented by: Sodium Chloride (Normal Saline) 1,000 mls @ 100 mls/hr IV ASDIRECTED [facility] Last Admin: 09/30/19 11:03 Dose: 100 mls/hr Documented by: - Exam General: Alert, Oriented, Severe Distress Lungs: Clear to Auscultation, Normal Respiratory Effort Cardiovascular: Regular Rhythm, No Murmurs, Tachycardia Extremities: No Pedal Edema Sepsis Event Note - Evaluation Sepsis Screening Result: No Definite Risk - Focused Exam Vital Signs: Vital Signs Temp Pulse Pulse Resp BP BP Pulse Ox 10/01/19 08:42 92 16 111/78 92 L 10/01/19 08:30 87 16 114/74 93 L 10/01/19 08:23 163 H 16 90/53 L 93 L 10/01/19 08:10 97.5 F 168 H 20 98/76 93 L 10/01/19 08:05 169 H 111/66 10/01/19 03:47 97.4 F 90 20 142/90 H 94 L - Problem List & Annotations (1) Palliative care status SNOMED Code(s): 134976075 Code(s): Z51.5 - ENCOUNTER FOR PALLIATIVE CARE Status: Acute Current Visit: Yes (2) Acute electrocardiogram changes SNOMED Code(s): 450956671 Code(s): R94.31 - ABNORMAL ELECTROCARDIOGRAM [ECG] [EKG] Status: Acute Current Visit: Yes (3) Chest pain SNOMED Code(s): 72818751 Code(s): R07.9 - CHEST PAIN, UNSPECIFIED Status: Acute Current Visit: Yes Qualifiers: Chest pain type: unspecified Qualified Code(s): R07.9 - Chest pain, unspecified (4) Wide-complex tachycardia SNOMED Code(s): 654421217 Code(s): I47.2 - VENTRICULAR TACHYCARDIA Status: Acute Current Visit: Yes (5) Chronic renal insufficiency, stage III (moderate) SNOMED Code(s): 180829398 Code(s): N18.3 - CHRONIC KIDNEY DISEASE, STAGE 3 (MODERATE) Status: Acute Current Visit: Yes - Problem List Review Problem List Initiated/Reviewed/Updated: Yes - My Orders Last 24 Hours: My Active Orders 09/30/19 13:45 Up ad Cheryl [RC] ASDIRECTED Metoprolol Succinate [Toprol XL] 100 mg PO DAILY 09/30/19 13:57 SCD [Sequential Compression Device] [OM.PC] Routine 09/30/19 14:00 Enoxaparin [Lovenox] 30 mg SUBCUT Q24H 09/30/19 14:15 Flecainide [Tambocor] 50 mg PO BID 09/30/19 16:00 EKG 12 Lead [EK] Routine 10/01/19 05:11 EKG 12 Lead [EK] AM 10/01/19 06:25 CBC WITH AUTO DIFF [HEME] Routine COMPREHENSIVE METABOLIC PN,CMP [CHEM] Routine 10/01/19 08:21 EKG 12 Lead [EK] Routine 10/01/19 08:22 EKG Documentation Completion [RC] ASDIRECTED 10/01/19 08:30 Sodium Chloride 0.9% [Normal Saline] 1,000 ml IV ASDIRECTED EKG 12 Lead [EK] Routine 10/01/19 08:31 EKG Documentation Completion [RC] ASDIRECTED - Plan Plan:: From 7:50 AM to 8:30 AM were spent in critical care with this patient. Initially when he had the tachycardia we waited about 10 minutes to see if it would go away has had before. It did not go away. Patient's blood pressure systolically was in the 90s and his oxygen was 94% on room air. We went ahead and got EKG that showed wide-complex tachycardia at a rate of 160 beats a minute. His Toprol and flecainide were given this morning. That did not help. So eventually because he is diltiazem the ER to convert this rhythm slow IV push we gave 5 mg of diltiazem slow and he did convert. We also given 500 mL bolus of normal saline. Patient states he felt good other than he can feel his heart racing. He had no symptoms. Lifetime he has tachycardias when he gets out of bed. I called [facility] and talk to Dr. Patel hospitalist and he agreed to take him in the transfer by [facility] ambulance. After the 500 mL bolus will continue the fluids 100 mL an hour. Check CBC, CMP. Troponin this morning was within normal limits. EKGs of course showed sinus tachycardia. Also sinus rhythm with bundle branch block after he was converted. He will remain in bed and not get out of bed until he is to [facility]. 40 minutes spent in critical care.
--- NOTE | 2019-10-01 09:22 | PCM.DCSUM1 ---
Discharge Summary - Hospital Course Free Text/Narrative:: Hospital course-patient was admitted. He had the adenosine and the diltiazem in the ER. The diltiazem brought his rate down. He has some ST depression versus bundle branch block mL lateral leads. We did serial enzymes and his troponins were not elevated. He did have the chest pain of course. His states that he ran out of the flecainide the night before he had the symptoms. He says his been out of it for 2 days. Restarted Toprol XL 100 mg a day and his flecainide 10 mg twice a day. Through the night the patient had no symptoms although he will get a little tachycardic when he would get up and go to the bathroom about 130s. And then when he sat down back in bed it would go away. The next day in the morning he had an episode that lasted 40 minutes. After workup and some fluids we gave a little diltiazem and he again converted. Called [facility] and they agreed to accept him in transfer ACLS ambulanc Dr. Jorge man. We've made him nothing by mouth and will not let him get out of bed because when he does he is tachycardic. Brief History: This is an 84-year-old male patient that is a history of SVT and atrial fibrillation beats. He was placed on flecainide 50 mg twice a day [address] Valerio after Dr. Valerio conferred with iron erector. He ran out of his medicine a couple days ago and then started having problems with chest pain last night. Then it reoccurred this morning. He had some shortness of breath and some sweating. He came to the ER his heart rate was 160. He is given some adenosine and then IV diltiazem and his heart rate returned to normal levels. He's normally and Toprol XL 100 mg and course of flecainide 50 twice a day. He said ablations 2. As I speak to me feels really great. He denies chest pain, shortness breath, fevers, chills, arm pain. Diagnosis: Stroke: No - Discharge Data Discharge Date: 10/01/19 Discharge Disposition: DC/Tfer to Acute Hospital 02 Condition: Stable - Referral to Home Health Primary Care Physician: Smith Willingham MD - Discharge Diagnosis/Problem(s) (1) Palliative care status SNOMED Code(s): 447812824 ICD Code: Z51.5 - ENCOUNTER FOR PALLIATIVE CARE Status: Acute Current Visit: Yes (2) Acute electrocardiogram changes SNOMED Code(s): 651804591 ICD Code: R94.31 - ABNORMAL ELECTROCARDIOGRAM [ECG] [EKG] Status: Acute Current Visit: Yes (3) Chest pain SNOMED Code(s): 39235639 ICD Code: R07.9 - CHEST PAIN, UNSPECIFIED Status: Acute Current Visit: Yes Qualifiers: Chest pain type: unspecified Qualified Code(s): R07.9 - Chest pain, unspecified (4) Wide-complex tachycardia SNOMED Code(s): 132077422 ICD Code: I47.2 - VENTRICULAR TACHYCARDIA Status: Acute Current Visit: Yes (5) Chronic renal insufficiency, stage III (moderate) SNOMED Code(s): 489843119 ICD Code: N18.3 - CHRONIC KIDNEY DISEASE, STAGE 3 (MODERATE) Status: Acute Current Visit: Yes - Patient Instructions Diet: NPO Activity: Bedrest Driving: Do Not Drive Showering/Bathing: No Showering Other/Special Instructions: 1. Transfer to [facility] ACLS ambulance Dr. Jorge man. - Discharge Plan Home Medications: Home Meds Ascorbic Acid [Vitamin C] 1,000 mg PO DAILY 09/30/19 [History] Cholecalciferol (Vitamin D3) [Vitamin D3] 2,000 unit PO DAILY 09/30/19 [History] Chondroitin/Glucosamine [Glucosamine-Chondroitin] 1 mg PO DAILY 09/30/19 [History] Dextran 70/Hypromellose [Artificial Tears Eye Drops] 15 ml OP Q4H PRN 09/30/19 [History] Flecainide Acetate 50 mg PO BID 09/30/19 [History] Loratadine [Claritin] 10 mg PO DAILY PRN 09/30/19 [History] Vitamin B6-pyridOXINE 50 mg PO DAILY 09/30/19 [History] Acetaminophen [Tylenol Extra Strength] 1,000 mg PO Q6H PRN tablet 10/01/19 [Rx] Enoxaparin [Lovenox] 30 mg SUBCUT Q24H syringe 10/01/19 [Rx] Metoprolol Succinate [Toprol XL 100mg] 100 mg PO DAILY tab.er 10/01/19 [Rx] Sodium Chloride 0.9% [Normal Saline] 100 ml IV ASDIRECTED bag 10/01/19 [Rx] Sodium Chloride 0.9% [Saline Flush] 10 ml FLUSH ASDIRECTED PRN syringe 10/01/19 [Rx] Forms: ED Department Discharge Referrals: PCP,None [Ordering Only Provider] - - Discharge Summary/Plan Comment DC Time >30 min.: Yes (Transfer calls and paperwork) - Patient Data Vitals - Most Recent: Last Vital Signs Temp 98.2 F 10/01/19 09:08 Pulse 88 10/01/19 09:08 Resp 19 10/01/19 09:08 BP 123/88 10/01/19 09:08 Pulse Ox 94 L 10/01/19 09:08 Weight - Most Recent: 202 lb 11.2 oz Lab Results - Last 24 hrs: Laboratory Results - last 24 hr 09/30/19 09/30/19 09/30/19 Range/Units 10:20 10:20 10:20 WBC 9.9 (4.5-12.0) X10-3/uL RBC 5.44 (4.30-5.75) x10(6)uL Hgb 15.4 (13.5-17.8) g/dL Hct 47.3 (30.0-51.3) % MCV 86.8 (80-96) fL MCH 28.2 (27.7-33.6) pg MCHC 32.5 (32.2-35.4) g/dL RDW 14.3 (11.5-15.5) % Plt Count 277 (125-369) X10(3)uL MPV 8.4 (7.4-10.4) fL Neut % (Auto) 57.2 (46-82) % Lymph % (Auto) 30.3 (13-37) % [place] % (Auto) 7.2 (4-12) % Eos % (Auto) 2 (1.0-5.0) % Baso % (Auto) 3 H (0-2) % Neut # (Auto) 5.7 (1.6-8.3) # Lymph # (Auto) 3.0 (0.6-5.0) # [place] # (Auto) 0.7 (0.0-1.3) # Eos # (Auto) 0.2 (0.0-0.8) # Baso # (Auto) 0.3 H (0.0-0.2) # D-Dimer, Quantitative 0.41 (0.0-0.59) mg/LFEU Sodium 139 (135-145) mmol/L Potassium 4.3 (3.5-5.3) mmol/L Chloride 106 (100-110) mmol/L Carbon Dioxide 22 (21-32) mmol/L BUN 21 H (7-18) mg/dL Creatinine 1.8 H (0.70-1.30) mg/dL Est Cr Clr Drug Dosing TNP Estimated GFR (MDRD) 36 L (>60) BUN/Creatinine Ratio 11.7 (9-20) Glucose 135 H (80-116) mg/dL Calcium 8.5 L (8.6-10.2) mg/dL Magnesium 2.0 (1.8-2.5) mg/dL Total Bilirubin 0.7 (0.1-1.3) mg/dL AST 16 (5-25) IU/L ALT 13 (12-36) U/L Alkaline Phosphatase 69 (56-112) IU/L Troponin I (4.0-60.3) pg/mL Total Protein 6.7 (6.0-8.0) g/dL Albumin 3.3 (3.2-4.6) g/dL Globulin 3.4 g/dL Albumin/Globulin Ratio 1.0 TSH, Ultra Sensitive (0.36-3.74) IU/mL 09/30/19 09/30/19 09/30/19 Range/Units 10:20 10:20 16:18 WBC (4.5-12.0) X10-3/uL RBC (4.30-5.75) x10(6)uL Hgb (13.5-17.8) g/dL Hct (30.0-51.3) % MCV (80-96) fL MCH (27.7-33.6) pg MCHC (32.2-35.4) g/dL RDW (11.5-15.5) % Plt Count (125-369) X10(3)uL MPV (7.4-10.4) fL Neut % (Auto) (46-82) % Lymph % (Auto) (13-37) % [place] % (Auto) (4-12) % Eos % (Auto) (1.0-5.0) % Baso % (Auto) (0-2) % Neut # (Auto) (1.6-8.3) # Lymph # (Auto) (0.6-5.0) # [place] # (Auto) (0.0-1.3) # Eos # (Auto) (0.0-0.8) # Baso # (Auto) (0.0-0.2) # D-Dimer, Quantitative (0.0-0.59) mg/LFEU Sodium (135-145) mmol/L Potassium (3.5-5.3) mmol/L Chloride (100-110) mmol/L Carbon Dioxide (21-32) mmol/L BUN (7-18) mg/dL Creatinine (0.70-1.30) mg/dL Est Cr Clr Drug Dosing Estimated GFR (MDRD) (>60) BUN/Creatinine Ratio (9-20) Glucose (80-116) mg/dL Calcium (8.6-10.2) mg/dL Magnesium (1.8-2.5) mg/dL Total Bilirubin (0.1-1.3) mg/dL AST (5-25) IU/L ALT (12-36) U/L Alkaline Phosphatase (56-112) IU/L Troponin I 18.4 46.0 (4.0-60.3) pg/mL Total Protein (6.0-8.0) g/dL Albumin (3.2-4.6) g/dL Globulin g/dL Albumin/Globulin Ratio TSH, Ultra Sensitive 1.61 (0.36-3.74) IU/mL 10/01/19 10/01/19 Range/Units 06:25 06:25 WBC 7.6 (4.5-12.0) X10-3/uL RBC 4.96 (4.30-5.75) x10(6)uL Hgb 14.1 (13.5-17.8) g/dL Hct 43.5 (30.0-51.3) % MCV 87.6 (80-96) fL MCH 28.3 (27.7-33.6) pg MCHC 32.3 (32.2-35.4) g/dL RDW 13.8 (11.5-15.5) % Plt Count 207 (125-369) X10(3)uL MPV 8.9 (7.4-10.4) fL Neut % (Auto) 50.1 (46-82) % Lymph % (Auto) 38.7 H (13-37) % [place] % (Auto) 7.6 (4-12) % Eos % (Auto) 3 (1.0-5.0) % Baso % (Auto) 0 (0-2) % Neut # (Auto) 3.8 (1.6-8.3) # Lymph # (Auto) 3.0 (0.6-5.0) # [place] # (Auto) 0.6 (0.0-1.3) # Eos # (Auto) 0.2 (0.0-0.8) # Baso # (Auto) 0.0 (0.0-0.2) # D-Dimer, Quantitative (0.0-0.59) mg/LFEU Sodium (135-145) mmol/L Potassium (3.5-5.3) mmol/L Chloride (100-110) mmol/L Carbon Dioxide (21-32) mmol/L BUN (7-18) mg/dL Creatinine (0.70-1.30) mg/dL Est Cr Clr Drug Dosing Estimated GFR (MDRD) (>60) BUN/Creatinine Ratio (9-20) Glucose (80-116) mg/dL Calcium (8.6-10.2) mg/dL Magnesium (1.8-2.5) mg/dL Total Bilirubin (0.1-1.3) mg/dL AST (5-25) IU/L ALT (12-36) U/L Alkaline Phosphatase (56-112) IU/L Troponin I 39.9 (4.0-60.3) pg/mL Total Protein (6.0-8.0) g/dL Albumin (3.2-4.6) g/dL Globulin g/dL Albumin/Globulin Ratio TSH, Ultra Sensitive (0.36-3.74) IU/mL Med Orders - Current: Current Medications Acetaminophen (Tylenol Extra Strength) 1,000 mg PO Q6H PRN PRN Reason: Pain Enoxaparin Sodium (Lovenox) 30 mg SUBCUT Q24H [facility] Last Admin: 09/30/19 14:42 Dose: 30 mg Documented by: Flecainide Acetate (Tambocor) 50 mg PO BID [facility] Last Admin: 10/01/19 08:08 Dose: 50 mg Documented by: Sodium Chloride (Normal Saline) 1,000 mls @ 500 mls/hr IV ASDIRECTED [facility] Last Admin: 10/01/19 08:30 Dose: 500 mls/hr Documented by: Sodium Chloride (Normal Saline) 1,000 mls @ 100 mls/hr IV ASDIRECTED [facility] Metoprolol Succinate (Toprol Xl) 100 mg PO DAILY [facility] Last Admin: 10/01/19 08:05 Dose: 100 mg Documented by: Sodium Chloride (Saline Flush) 10 ml FLUSH ASDIRECTED PRN PRN Reason: Keep Vein Open Last Admin: 09/30/19 13:56 Dose: 10 ml Documented by: Discontinued Medications Adenosine (Adenocard) Confirm Administered Dose 12 mg .ROUTE .STK-MED ONE Stop: 09/30/19 10:05 Last Admin: 09/30/19 11:00 Dose: Not Given Documented by: Adenosine (Adenocard) 6 mg IVPUSH NOW ONE Stop: 09/30/19 10:04 Last Admin: 09/30/19 10:15 Dose: 6 mg Documented by: Adenosine (Adenocard) 12 mg IVPUSH NOW ONE Stop: 09/30/19 10:56 Last Admin: 09/30/19 10:17 Dose: 12 mg Documented by: Aspirin (Aspirin) 324 mg PO ONETIME ONE Stop: 09/30/19 10:24 Last Admin: 09/30/19 10:30 Dose: 324 mg Documented by: Diltiazem HCl (Diltiazem) 20 mg IVPUSH ONETIME ONE Stop: 09/30/19 10:24 Last Admin: 09/30/19 10:33 Dose: 15 mg Documented by: Diltiazem HCl (Diltiazem) 5 mg IVPUSH ONETIME ONE Stop: 10/01/19 08:21 Last Admin: 10/01/19 08:23 Dose: 5 mg Documented by: Sodium Chloride (Normal Saline) 500 mls @ 999 mls/hr IV .BOLUS ONE Stop: 09/30/19 10:53 Last Admin: 09/30/19 10:34 Dose: 999 mls/hr Documented by: Sodium Chloride (Normal Saline) 1,000 mls @ 100 mls/hr IV ASDIRECTED KATYA Last Admin: 09/30/19 11:03 Dose: 100 mls/hr Documented by:
[2019-10-01 09:46] VITALS: BP 126/89; PULSE 87
--- NOTE | 2019-10-01 10:30 | CR ---
INDICATION: Fast heart rate, chest pain. CHEST ONE VIEW: Portable AP upright view of the chest 09/30/19 was compared with 09/21/16 and 11/17/15. Elevated left hemidiaphragm is again noted which may be at least partly anatomic in nature. There is some minimal blunting of the left costophrenic angle suggested with some minimal density at the left lung base could represent minimal pneumonia and pleuritis. However, findings may simply be on the basis of fibrosis and atelectasis or simply compressed markings due to the elevated left hemidiaphragm. No definite consolidating pneumonia or significant size effusion was seen. The heart appears somewhat enlarged. The aorta is tortuous with calcification in the arch. Overlying EKG leads are noted. IMPRESSION: 1. Cannot exclude some minimal active disease at the left lung base, possibly minimal pneumonia and pleuritis versus atelectasis in that area. 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 2. ASHD. MTDD
== END 2019-10-01 10:00 ==
LOC: FB.ED 09:48 → FB.MS 11:23
PROVIDERS: ADMIT Emergency Medicine; ATTEND Family Medicine
DX: R07.9 Chest pain, unspecified (principal); I47.2 Ventricular tachycardia; R94.31 Abnormal electrocardiogram [ECG] [EKG]; N18.3 Chronic kidney disease, stage 3 (moderate); I48.91 Unspecified atrial fibrillation; Z86.79 Personal history of other diseases of the circulatory system; Z88.0 Allergy status to penicillin; Z51.5 Encounter for palliative care; Z79.899 Other long term (current) drug therapy
CPT/HCPCS: 36415; 71045; 80053; 83735; 84443; 84484; 85025; 85379; 93005; 96361; 96372; 96374; 96375; 96376; 99285; A9270; G0378; J0153; J1650; J3490; J7030; J7040

== ENCOUNTER 2021-09-15 13:28 | Emergency (ER) | payer MEDICARE, BC ==
[2021-09-15] MEDS: Sodium Chloride 0.9% 10 ML Syringe FLUSH PRN ×3 (13:40→13:53)
[2021-09-15] MEDS ORDERED: Adenosine 6 MG/2 ML SDV IVPUSH ONE ×2 (13:46→13:48)
[2021-09-15 13:55] VITALS: BP 144/98; PULSE 138
[2021-09-15] MEDS ORDERED: Diltiazem 25 MG/5 ML SDV IVPUSH STA (13:56)
[2021-09-15] MEDS ORDERED: Sodium Chloride 0.9% 1,000 ML IV SCH (14:00)
[2021-09-15 14:03] LABS: ESTIMATED GFR 34 mL/min (>60)
== END 2021-09-15 15:16 | disposition home or self-care (01) ==
LOC: FB.ED 13:28
DX: I47.1 Supraventricular tachycardia (principal); E86.0 Dehydration; I10 Essential (primary) hypertension; Z88.0 Allergy status to penicillin; Z79.899 Other long term (current) drug therapy; Z79.01 Long term (current) use of anticoagulants; Z90.49 Acquired absence of other specified parts of digestive tract
CPT/HCPCS: 80053; 83735; 84484; 85025; 96361; 96374; 96375; 99285-25; J0153; J3490; J7030

== ENCOUNTER 2021-09-17 10:55 | Emergency (ER) | payer MEDICARE, BC ==
[2021-09-17] MEDS ORDERED: Diltiazem 25 MG/5 ML SDV IVPUSH ONE (11:11)
[2021-09-17 22:16] VITALS: BP 115/78; PULSE 83
== END 2021-09-17 11:50 | disposition home or self-care (01) ==
LOC: FB.ED 10:55
DX: R00.0 Tachycardia, unspecified (principal); I10 Essential (primary) hypertension; Z79.899 Other long term (current) drug therapy; Z79.01 Long term (current) use of anticoagulants; Z88.0 Allergy status to penicillin; Z90.49 Acquired absence of other specified parts of digestive tract
CPT/HCPCS: 93005; 99284

== ENCOUNTER 2023-01-13 15:01 | Emergency (ER) | payer BC, MEDICARE ==
[2023-01-13] MEDS ORDERED: Sodium Chloride 0.9% 10 ML Syringe FLUSH PRN (15:18)
[2023-01-13 15:42] LABS: BASOPHILS ABSOLUTE AUTO 0.1 x10-3/uL (0.0-0.3); BASOPHILS PERCENT AUTO 1.3 % (0.3-3.8); EOSINOPHILS ABSOLUTE AUTO 0.1 x10-3/uL (0.0-0.6); EOSINOPHILS PERCENT AUTO 1.2 % (0.1-6.8); HEMATOCRIT 42.3 % (38.3-50.1); HEMOGLOBIN 14.1 g/dL (12.9-17.7); LYMPHOCYTES ABSOLUTE AUTO 1.8 x10-3/uL (0.5-4.5); LYMPHOCYTES PERCENT AUTO 23.5 % (15.8-45.3); MEAN CORPUSCULAR HGB CONC 33.4 g/dL (28.7-35.3); MEAN CORPUSCULAR VOLUME 89.8 fL (80.8-98.7); MEAN PLATELET VOLUME 8.5 fL (6.7-11.0); MONOCYTES ABSOLUTE AUTO 0.6 x10-3/uL (0.0-1.2); MONOCYTES PERCENT AUTO 7.4 % (5.5-15.2); NEUTROPHILS PERCENT AUTO 66.6 % (40.3-71.8); PLATELET COUNT,PLT 206 x10(3)uL (117-477); RED BLOOD CELL COUNT 4.71 x10(6)uL (3.90-5.90); RED CELL DISTRIBUTION WIDTH 15.3 % (12.4-15.0); WHITE BLOOD CELL COUNT,WBC 7.5 x10-3/uL (3.2-10.1)
[2023-01-13 15:50] LABS: A/G RATIO 0.9; ALANINE AMINOTRANSFERASE,ALT 21 U/L (12-36); ALBUMIN 3.3 g/dL (3.2-4.6); ALKALINE PHOSPHATASE 78 IU/L (56-112); ASPARTATE AMNIOTRANSFERASE,AST 14 IU/L (5-25); BILIRUBIN TOTAL 0.6 mg/dL (0.1-1.3); BLOOD UREA NITROGEN,BUN 21 mg/dL (7-18); BUN/CREATININE RATIO 10.5 (9-20); CALCIUM 9.5 mg/dL (8.6-10.2); CARBON DIOXIDE,CO2 26 mmol/L (21-32); CHLORIDE,CL 106 mmol/L (100-110); EST CRCL DRUG DOSING (CG) 29.68 mL/min; ESTIMATED GFR 32 mL/min (>60); GLUCOSE RANDOM 132 mg/dL (80-116); INR 1.08 (1.00-1.24); POTASSIUM,K 4.4 mmol/L (3.5-5.3); PROTHROMBIN TIME 11.1 sec (9.0-11.1); PTT,PARTIAL THROMBOPLSTIN TIME 30.5 SECONDS (24.4-33.2); SODIUM,NA 141 mmol/L (135-145)
[2023-01-13 15:56] LABS: TROPONIN I 17.1 pg/mL (4.0-60.3)
[2023-01-13 18:11] VITALS: BP 112/80; PULSE 90
== END 2023-01-13 16:35 | disposition home or self-care (01) ==
LOC: FB.ED 15:01
DX: I13.0 Hypertensive heart and chronic kidney disease with heart failure and stage 1 through stage 4 chronic kidney disease, or unspecified chronic kidney disease (principal); I50.9 Heart failure, unspecified; N18.9 Chronic kidney disease, unspecified; R00.2 Palpitations; E78.00 Pure hypercholesterolemia, unspecified; Z90.410 Acquired total absence of pancreas; Z88.0 Allergy status to penicillin; Z79.899 Other long term (current) drug therapy
CPT/HCPCS: 36415; 71045; 80053; 83880; 84484; 85025; 85610; 85730; 93005; 99284

== ENCOUNTER 2023-02-11 13:30 | Emergency (ER) | payer MEDICARE ==
[2023-02-11 13:53] VITALS: BP 159/109; PULSE 50
== END 2023-02-11 14:33 | disposition home or self-care (01) ==
LOC: FB.ED 13:30
DX: S01.81XA Laceration without foreign body of other part of head, initial encounter (principal); S06.9X0A Unspecified intracranial injury without loss of consciousness, initial encounter; S00.83XA Contusion of other part of head, initial encounter; I11.0 Hypertensive heart disease with heart failure; I50.9 Heart failure, unspecified; E78.00 Pure hypercholesterolemia, unspecified; Z88.0 Allergy status to penicillin; Z90.49 Acquired absence of other specified parts of digestive tract; Z79.899 Other long term (current) drug therapy; W19.XXXA Unspecified fall, initial encounter
CPT/HCPCS: 12013; 99283